=== PATIENT | female | born 1955 | race Caucasian/White ===

== ENCOUNTER 2022-07-27 08:16 | Emergency (ER) | payer MEDICARE, OTHER, SELFPAY ==
--- NOTE | 2022-07-27 08:18 | ED.URI ---
HPI - URI/Sore Throat General Chief Complaint: Upper Respiratory Infection Stated Complaint: congestion and rattling Time Seen by Provider: 07/27/22 08:18 Source: patient and RN notes reviewed History of Present Illness HPI Narrative: patient is a 67-year-old female who presents to urgent care with complaints of chest congestion and persistent cough. Patient states that started the beginning in June and she was on antibiotics for 10 days. Patient states that never really cleared up and her PCP has not gotten back with her. Patient has been taking Mucinex, DayQuil, NyQuil and using Tessalon Perles. Denies any recent fevers, nausea, vomiting, shortness of breath or chest pain. Denies any new ill exposures. No other acute complaints. No acute distress noted. Patient aware of the plan of care. Some parts of this dictation were generated by voice recognition software and may contain typographical and/or grammatical inaccuracies. Related Data Home Medications Medication Instructions Recorded Confirmed metoprolol succinate 100 mg 100 mg PO DAILY 07/27/22 07/27/22 tablet,extended release 24 hr tramadol 50 mg tablet 50 mg PO DAILY 07/27/22 07/27/22 Allergies Allergy/AdvReac Type Severity Reaction Status Date / Time cortisone Allergy Mild FACIAL Verified 07/27/22 08:31 FLUSHING, HOT FLASHES Review of Systems Review of Systems: CONSTITUTIONAL: Denies fever, chills, or sweats. EYES: Denies visual changes, redness, or discharge. ENT: Denies rhinorrhea, congestion, sore throat, or otalgia. CARDIOVASCULAR: Denies chest pain, palpitations, or edema. RESPIRATORY: Reports of chest congestion and cough GASTROINTESTINAL: Denies abdominal pain, nausea, vomiting, or diarrhea. GENITOURINARY: Denies dysuria or hematuria. SKIN: Denies rash or itching. MUSCULOSKELETAL: Denies back pain, joint pain, or myalgia. NEUROLOGIC: Denies headache, numbness, or weakness. All other systems reviewed are negative, except as documented in HPI. [facility] Family History Family History (Updated 04/21/14 @ 07:13 by DOCTOR UNKNOWN) Father Family history of lung cancer Social History Social History Smoking status: Never smoker Alcohol intake: never Comments At the time of my signature, I reviewed and agree with the nursing past medical, surgical, social, and family history. There is no relevant family history pertinent to the patient complaint. Exam Narrative: GENERAL: This is a well-nourished, well-developed patient, in no apparent distress. HEAD: normocephalic, atraumatic. EYES: PERRL. Sclera clear/white. Vision is grossly intact. EARS: External ears normal, auditory canals clear and without drainage, TMs normal without perforation. Hearing grossly intact. NOSE: External nose normal with no obvious nasal discharge, nares without redness, no rhinorrhea. THROAT: Mucous membranes moist, posterior pharynx clear. Mild postnasal drainage NECK: Neck supple, non-tender without lymphadenopathy CARDIOVASCULAR: Regular rate and rhythm RESPIRATORY: persistent cough noted on exam.Clear to auscultation. Breath sounds equal bilaterally. No wheezes, rales, or rhonchi. SKIN: warm, intact with no suspicious lesions or rash, good texture and turgor. NEURO: awake, alert, and oriented to person, place and time. There were no obvious focal neurologic abnormalities. EXTREMITIES: No clubbing, cyanosis, or edema. Course Course Level of Care: Express Care Visit Vital Signs Vital signs: Vital Signs Temperature 98.7 F 07/27/22 08:28 Pulse Rate 77 07/27/22 08:28 Respiratory Rate 20 07/27/22 08:28 Blood Pressure 132/68 07/27/22 08:28 Pulse Oximetry 98 07/27/22 08:28 Oxygen Delivery Room Air 07/27/22 08:28 Temperature 98.7 F 07/27/22 08:28 Pulse Rate 77 07/27/22 08:28 Respiratory Rate 20 07/27/22 08:28 Blood Pressure 132/68 07/27/22 08:28 Pulse Oximetry 98 07/27/22 08:28 Oxygen Delivery Room
[2022-07-27 08:28] VITALS: BP 132/68; PULSE 77; RESP 20; TEMP 37.1; O2SAT 98
== END 2022-07-27 08:55 | disposition home or self-care (01) ==
PROVIDERS: Emergency Provider Nurse Practitioner Family; PCP Family Medicine
DX: J40 Bronchitis, not specified as acute or chronic (principal); I10 Essential (primary) hypertension
CPT/HCPCS: 99203; G0463